=== PATIENT | female | born 1975 | race Caucasian/White ===

== ENCOUNTER 2016-12-12 07:30 | Inpatient (IN) | payer BC ==
--- NOTE | 2016-11-19 14:00 | NUR ---
JOINT REPLACEMENT PREOP CLASS PATIENT ATTENDED JOINT REPLACEMENT PREOP CLASS. CASE MANAGEMENT CONTACT INFORMATION PROVIDED. EDUCATION WAS PROVIDED REGARDING WHAT TO EXPECT BEFORE, DURING AND AFTER SURGERY. INCLUDING: OVERVIEW OF ANATOMY AND PHYSIOLOGY HOSPITAL TREATMENT SCHEDULE THERAPY DEMONSTRATION CASE MANAGEMENT RESPONSIBILITIES DISCHARGE PLANNING EQUIPMENT NEEDS JOINT REPLACEMENT WORKBOOK ANTI-COAGULATION SURGERY STRONG NUTRITIONAL PROTOCOL DISCHARGE INSTRUCTIONS [facility] PATIENT PORTAL, WITH INSTRUCTIONS CJR AND PREOP SURVERY PREOP BATHING- CHG GIVEN ALL PATIENT'S QUESTIONS ANSWERED TO THEIR SATISFACTION. PATIENTS AND COACHES ENCOURAGED TO CALL WITH ANY ADDITIONAL QUESTIONS OR CONCERNS. CM FOLLOWING FOR TRANSITIONAL CARE PLANNING NEEDS DURING HOSPITALIZATION.
--- NOTE | 2016-11-20 16:30 | NUR ---
PHONE INTERVIEW WITH PATIENT. PMH, MEDS, ALLERGIES REVIEWED DOCUMENTED. MY CONTACT INFORMATION INCLUDED IF PATIENT HAS QUESTIONS.CONTACTED PT VIA DR MAGANA REQUEST TO ASK HER IF SHE HAD STOPPED SMOKING. PT CONFIRMED SHE QUIT ON OCTOBER 16, STARTED CHANTIX ALSO
[~2016-12-12] VITALS: Ht 152.4 cm; Wt 60.4 kg
[2016-12-12] VITALS (19 sets, daily range): BP systolic 123–153; BP diastolic 61–92; PULSE 61–90; RESP 15–19; TEMP 96.1–98.5; O2SAT 94–100; Ht 152.4 cm; Wt 60.4 kg
[~2016-12-12 07:30] MED LIST: ACETAMINOPHEN 500 MG TABLET PO ONE; DEXAMETHASONE 4mg/ml - 1ml INJECTION IV ONE; FAMOTIDINE 20mg IVPB 50 ML IV ONE; HYDR-3989 PO; LIDOCAINE 1% (10mg/ml) 2ml SDV SQ ONE; LR 1,000 ML IV SCH; MELOXICAM 15 MG TABLET PO ONE; METOCLOPRAMIDE 10mg/2ml INJECTION IV ONE; NAPR220C11 PO; NOZIN NASAL SWAB NS ONE; ONDANSETRON 4mg/2ml INJECTION IV ONE; TRAM50TA4 PO; VARE1TAB22 PO
[2016-12-12] MEDS ORDERED: PROPOFOL 500mg 50 ML IV ONE ×3 (10:17→13:20)
--- NOTE | 2016-12-12 12:03 | ANESPREOP ---
Anesthesia Record Date and Time DATE: 12/12/16 TIME: 12:00 Pre-Op Diagnosis right knee osteoarthritis Proposed Surgical Procedure RT. TOTAL KNEE ARTHORPLASTY NPO since: 2199 Allergies: Coded Allergies: latex (Verified Allergy, Mild, RASH, 12/12/16) ciprofloxacin (Verified Adverse Reaction, Intermediate, CRAWLING OUT OF SKIN, 12/12/16) ciprofloxacin HCl (Verified Adverse Reaction, Intermediate, CRAWLING OUT OF SKIN, 12/12/16) promethazine HCl (Verified Adverse Reaction, Intermediate, AGITATION, 12/12) Ht/Wt/BMI Height: 5 ' 0.00 " Weight: 60.400 kg BMI: 26.0 kg/m2 Vital Signs Date Time Temp Pulse Resp B/P Pulse Ox O2 Delivery O2 Flow Rate FiO2 12/12/16 10:25 98.5 70 15 139/92 99 Room Air Medications Inpatient Medications Current Medications Medications (Trade) Dose Ordered Sig/Dirk Start Time Stop Time Status Last Admin Dose Admin Lactated Ringer's (Lactated Ringers) 1,000 ml @ 50 mls/hr Q20H 12/12/16 07:00 12/12/16 11:14 50 MLS/HR Hydrocodone/Apap ([place] 5-325 Tablet) 5-325 Tablet, 1 TAB PO PRN PRN for PAIN, ( Reported) Last Taken: on 12/08/16 Naproxen Sodium (Aleve) 220 Mg Capsule, 1 CAP PO PRN PRN for PAIN, (Reported) Last Taken: on 11/28/16 Tramadol HCl (Tramadol HCl) 50 Mg Tablet, 50 MG PO PRN, (Reported) Last Taken: on 11/21/16 Varenicline Tartrate (Chantix) Unknown Strength Tablet, 1 MG PO BID, (Reported) Last Taken: on 12/10/16 1700 Currently on Beta Butch: No Medical/Surgical History Anesthesia PMH: Reports: Anesthesia Reactions (NAUSEA; NO KNOWN AIRWAY ISSUES) , Arthritis (RT KNEE), Headaches (MIGRAINES-STRESS), Pneumonia (4 1/2 YEARS AGO) , Reflux (takes meds prn--not needed "in forever"), Denies: *Angina, *Diabetes, *Hypertension, *MA, CHF, CVA/Stroke/TIA, Cancer, Clotting Problems, Deep Vein Thrombosis, Glaucoma, Hepatitis, Hiatal Hernia, Malignant Hyperthermia, Renal Disease, Rheumatic Fever, Seizures, Sleep Apnea, Thyroid Disease Smoking Status: Former smoker Has pt. smoked today?: No # of Packs per Day: 1 # of Years: 20 Use Chewing Tobacco?: No Second Hand Exposure: No Substance Use Type: other (pt denies - has severe tooth decay throughout) Alcohol Intake: none HX of Last Menstrual Period: HYST Past Surgical History Orthopedic Surgeries: Yes - RT KNEE SCOPE X4; RT TIBIAL PLATEAU FX; hardware removal rt knee Abdominal Surgeries: Genitourinary Surgeries: Yes - CYSTO STENT INSERT Cardiac Surgeries: Endocrine Surgeries: Reproductive Surgeries: Yes - ABD HYST AND SALPINGECTOMY,ECTOPIC PREG,TUBAL Neurological Surgeries: Ear Surgeries: Nose Surgeries: Throat Surgeries: Other Surgeries: Anesthesia Adverse Reactions: FOUND none Pertinent Findings EKG Rhythm: Sinus Rhythm Physical Exam Respiratory: Lungs clear Cardiovascular: FOUND Regular rate, rhythm, FOUND No murmur Airway Assessment Mallampati Score: II TMD: 3 Fingerbreadths Neck Extension: Good Teeth: Chipped Teeth/Crowns (severe decay) Overall Assessment: No Airway Concerns ASA: 2 Plan Regional: Spinal Peripheral Nerve Block: Saphenous - RT Discussion Discussed risks/options/alternatives of anesthesia and questions answered. Patient consents. Nursing pain assessment noted. Present: Children, Spouse Attestation Statement Prior to the delivery of any anesthetic medication, I examined the patient, developed the plan, obtained the patient's consent and discussed the risk and benefits of the procedure with the patient/guardian. HORTENCIA CAT CRNA December 12, 2016 12:03
[2016-12-12] MEDS ORDERED: MIDAZOLAM 2mg/2ml INJECTION ONE ×2 (12:12→12:28)
--- NOTE | 2016-12-12 12:50 | PDHPBRIEF ---
History and Physical Update Date DATE: 12/12/16 TIME: 12:50 I evaluated this patient and found no changes in the history and clinical exam findings. The recommendations and treatment plan is also unchanged from the previous documentation. NOAH CHAN December 12, 2016 12:50
[2016-12-12] MEDS ORDERED: ROPIVACAINE 0.5% (5mg/ml) 30ml INJ ONE (13:07)
[2016-12-12] MEDS ORDERED: VANCOMYCIN 1 GRAM INJECTION ONE (13:07)
[2016-12-12] MEDS ORDERED: CEFAZOLIN 2 GM VIAL IV ONE (13:30)
[2016-12-12] MEDS ORDERED: TRANEXAMIC ACID 1,000 MG in NORMAL SALINE 100 ML IV ONE ×2 (13:30→14:30)
[2016-12-12] MEDS ORDERED: PROPOFOL IV ONE (13:45)
--- NOTE | 2016-12-12 14:18 | PDOPERATE ---
Operative Report Date of Operation 12/12/16 Side: Right Preoperative Diagnosis: knee primary DJD Postoperative Diagnosis Same as preoperative diagnosis. Operation/Procedure: total knee arthroplasty (right) Surgeon Onel Parada MD [employer] YANIR[place] Complications None. Regional Block: Spinal Estimated Blood Loss See Anesthesia Record. Fluids Please See Anesthesia Record. Description of Operation Ms. Stewart and her knee were identified and marked in the the preoperative holding area. She was then brought back to the operating suite and proper anesthesia was administered. She was then positioned supine on the operating table. The right lower extremity was then prepped and draped in my normal sterile fashion. Timeout was performed with all operating room personnel. Mrs. Stewart is status post open reduction internal fixation as well as hardware removal of her right lateral tibial plateau leaving her with severe posterior metatarsal arthritis in the lateral compartment. She has fixed valgus deformity. A standard anterior incision followed by a medial parapatellar approach was utilized. As expected she hasn't complete loss of cartilage both the lateral femoral condyle and the lateral tibial plateau. She also large osteophytes laterally. A distal femoral cut was made in 5 of valgus using intramedullary guide. The femur was sized at a 2 and rotation set using the epicondylar axis. Distal femoral cuts were performed. A proximal tibial cut was made using extramedullary guide. Remaining osteophytes and meniscus were removed. Gaps were checked and they were well balanced and rectangular after a lateral release including the popliteus. Trial components were placed with a 9 mm spacer. This allowed for full range of motion and the patella tracked well. The knee was stable throughout range of motion. The patella was resurfaced with the knee in extension to a size 29. The tibia rotation was then marked and the tibia stamped at the proper rotation at a size 3. The tourniquet was inflated. The bone was prepared for cementing and all components cemented into place and allowed to cure in extension. Betadine solution was used for 3 minutes during the curing period and then fully irrigated out with 1 L of normal saline. The tourniquet was deflated and hemostasis obtained with electrocautery. And extension her IT band was slightly light so partial release was performed at the joint line. After the cement had cured the knee was taken through range of motion check for balance and stability which were good. Vancomycin powder was placed into the wound. The arthrotomy was closed with #1 Vicryl. The remainder of the wound was then closed by my plumber's assistant utilizing 2-0 vycral in the subcutaneous tissue. 4-0 monocryl was used in the subcuticular layer followed by dermabond and a sterile dressing. After closure the patient will be transferred to the recovery room under the care of anesthesia. CLAUDINE PARADA MD December 12, 2016 14:18
[2016-12-12] MEDS ORDERED: PROPOFOL 200mg 20 ML IV ONE (14:26)
[2016-12-12] MEDS ORDERED: EPINEPHRINE 0.25 MG, BUPIVACAINE 0.25% 75 MG, MORPHINE SULFATE 15 MG, KETOROLAC 60 MG i... INJ ONE ×5 (14:30)
[2016-12-12] MEDS ORDERED: DiphenhydrAMINE 25 MG CAPSULE PO PRN (14:45)
[2016-12-12] MEDS ORDERED: DiphenhydrAMINE 50 MG/ML INJECTION IV PRN (14:45)
[2016-12-12] MEDS ORDERED: ONDANSETRON 4mg/2ml INJECTION IV PRN (14:45)
[2016-12-12] MEDS ORDERED: SENNOSIDES 8.6 MG TABLET PO PRN (14:45)
[2016-12-12] MEDS ORDERED: NOZIN NASAL SWAB NS ONE (14:45)
[2016-12-12] MEDS ORDERED: NAPROXEN 220 MG TABLET PO PRN (14:45)
[2016-12-12] MEDS ORDERED: PRN ORDERS MC (14:45)
[2016-12-12] MEDS ORDERED: LORAZEPAM 1 MG TABLET PO PRN (14:45)
--- NOTE | 2016-12-12 14:59 | ANESPD ---
Peripheral Nerve Blockade Physician: Richard Parada MD Date: 12/12/16 Surgical Procedure: right TKA Discussion Discussed risks/options/alternatives of anesthesia and questions answered. Patient consents. Nursing pain assessment noted. Block Start: 14:52 Block Stop: 14:54 Block Employed: Adductor Canal Indication: post-operative pain Approach: right side confirmed Position: supine Patient: Consent, risks/benefits discussed, Informed, post block act. discussed Monitors: EKG, SpO2, NIBP IV Sedation: No Initial Vital Signs First Documented Vital Signs Date Time Temp Pulse Resp B/P Pulse Ox O2 Delivery O2 Flow Rate FiO2 12/12/16 10:25 98.5 70 15 139/92 99 Room Air Post Vital Signs Vital Signs Date Time Temp Pulse Resp B/P Pulse Ox O2 Delivery O2 Flow Rate FiO2 12/12/16 10:25 98.5 70 15 139/92 99 Room Air Initial Pain Score: 0 Post Block Score: 0 Prep: chlorhexadine/ETOH Ultrasound Used?: Yes Injectate Ropivacaine (%): 0.5 Ropivacaine (mL): 15 Was Epi 1:200,000 Used?: No Injection Injection made incrementally with constant monitoring and aspiration every [5] ml. HORTENCIA CAT I MASTER CONTROL ENGINEER December 12, 2016 14:59
--- NOTE | 2016-12-12 15:00 | NUR ---
PRIYANKA MATHEW ATTEMPTED VISIT. PT IS AT PROCEDURE. HER SPOUSE IS IN ROOM. PRIYANKA INTRODUCES HERSELF AND EXPLAINS HER ROLE IN DC PLANNING. CM CONTACT INFORMATION IS LEFT AT THE BEDSIDE.
--- NOTE | 2016-12-12 15:28 | ANESPO ---
Post-Op Note Date 12/12/16 Time: 15:28 Status Pt Participated in Evaluation: Pt participated in person Vital Signs Date Time Temp Pulse Resp B/P Pulse Ox O2 Delivery O2 Flow Rate FiO2 12/12/16 15:20 66 17 135/61 98 Room Air 12/12/16 14:46 97.5 8.00 Respiratory Function: Airway patent, Regular respirations Cardiovascular Function: Regular pulse Mental Status: Alert/oriented Pain Level Intensity: 0 Unable to Assess Pain Due To: GIVEN INTRA OP Hydration: Taking po fluids Complications during Recovery None apparent Follow-Up Instructions Instructions Per Surgeon HORTENCIA CAT CRNA December 12, 2016 15:28
--- NOTE | 2016-12-12 15:30 | NUR ---
ADMIT \ PT TO ROOM 121 PER OR CART. TRANSFERRED TO S.U. BED WITH ASSIST OF 3 USING SLIDE BOARD R/T LEVEL OF SPINAL. PT DENIES DISCOMFORT. ANTOINETTE WRAP IN PLACE ON RT KNEE WITH NO S/SX OF DRAINAGE/BLEEDING. FAMILY AT BEDSIDE.
[2016-12-12] MEDS: NORMAL SALINE 1,000 ML IV SCH (15:33)
--- NOTE | 2016-12-12 15:47 | DI ---
Indication: ITS.REASON: POSTOP knee replacement PROCEDURE: KNEE RIGHT 2 VIEW: Encounter: Initial Comparison: None Findings: Postoperative changes of right total knee replacement are seen. There is expected postoperative subcutaneous gas. No evidence of hardware failure or acute fracture. No retained radiopaque surgical instruments or sponges. Overlying material causing artifact. Impression: New right total knee prosthesis without evidence of immediate complication. .
[2016-12-12] MEDS: OXYCODONE I.R. 5 MG TABLET PO PRN ×3 (16:38→23:54)
[2016-12-12] MEDS: ACETAMINOPHEN 325 MG TABLET PO SCH ×2 (16:39→20:44)
[2016-12-12] MEDS ORDERED: MORPHINE SULFATE 10 MG SYRINGE IV PRN (19:00)
--- NOTE | 2016-12-12 19:00 | NUR ---
STATUS PT C/O SEVERE PAIN. RATES 06/29. REC'D V.O. FOR PRN MORPHINE IV. PT VERBALIZED APPRECIATION.
--- NOTE | 2016-12-12 20:11 | NUR ---
SUMMARY PT HAS WALKED TWICE POST OP. UP IN CHAIR FOR EVENING MEAL. SOLID FOOD WITHOUT N/V. PT NOW STATES HER PAIN IS GETTING BETTER. ENCOURAGED HER TO LISTEN TO NOC RN REGARDING WHEN SHE WILL TAKE NEXT NARCOTIC. 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 ANTOINETTE WRAP REMAINS IN PLACE WITH NO S/SX OF BLEEDING OR DRAINAGE.
[2016-12-12] MEDS: CEFAZOLIN 2 G in NORMAL SALINE 100 ML IV SCH (20:43)
[2016-12-12] MEDS: ASPIRIN *EC* 325mg TABLET PO SCH (20:44)
[2016-12-12] MEDS: NOZIN NASAL SWAB NS SCH (20:44)
[2016-12-12] MEDS ORDERED: SENNOSIDES 8.6 MG TABLET PO SCH (22:00)
[2016-12-13 00:09] VITALS: BP 149/86; PULSE 78; RESP 16; TEMP 98.4; O2SAT 99
[2016-12-13] MEDS: OXYCODONE I.R. 5 MG TABLET PO PRN ×4 (03:23→12:42)
[2016-12-13] MEDS: CEFAZOLIN 2 G in NORMAL SALINE 100 ML IV SCH (04:09)
[2016-12-13] MEDS: NORMAL SALINE 1,000 ML IV SCH (04:12)
[2016-12-13 04:14] VITALS: BP 116/75; PULSE 72; RESP 12; TEMP 96.1; O2SAT 97
--- NOTE | 2016-12-13 05:41 | NUR ---
SHIFT SUMMARY PATIENT IS ALERT AND ORIENTED X3 THIS SHIFT. VITAL SIGNS ARE STABLE ON ROOM AIR. PATIENT AMBULATES WITH ASSIST X1, WALKER, AND GAIT BELT. PATIENT CONTINUES TO HAVE DIFFICULTY WITH PAIN CONTROL. 3 ROXICODONE HAVE BEEN ADMINISTERED EACH TIME AVAILABLE. PATIENT HAS REPORTED SOME NAUSEA WITH AMBULATION AND WITH INCREASING PAIN, BUT HAS REFUSED ANTINAUSEA MEDICATION. THE EPISODES SEEM TO PASS QUICKLY. PATIENT HAS DENIED ANY SHORTNESS OF AIR. I HAVE CONTINUED TO REMIND PATIENT THAT SHE CAN NOT HAVE PILLOWS UNDER THE OPERATIVE KNEE.
[2016-12-13 05:55] LABS: HCT - HEMATOCRIT 31.1 % (36-46); HGB - HEMOGLOBIN 10.5 GM/DL (12-16); MEAN CORPUSCULAR HGB 32.1 UUG (26-34); MEAN CORPUSCULAR HGB CONC(MCHC 33.8 GM/DL (31-37); MEAN CORPUSCULAR VOLUME 95.1 UM3 (80-100); MEAN PLATELET VOLUME 9.5 UM3 (9.4-12.4); RED BLOOD COUNT 3.27 M/MM3 (4.00-5.20); WBC - WHITE BLOOD COUNT 11.6 T/MM3 (4.5-11.0)
[2016-12-13 06:01] LABS: ANION GAP 8 MEQ/L (5-15); BUN/CREATININE RATIO 20 RATIO (6-26); CALCIUM 8.5 MG/DL (8.4-10.2); CHLORIDE 102 MEQ/L (98-107); CO2 - CARBON DIOXIDE 25 MEQ/L (22-30); CREATININE 0.6 MG/DL (0.7-1.2); GLOMERULAR FILTRATION RATE 110; GLUCOSE 114 MG/DL (65-110); POTASSIUM 3.9 MEQ/L (3.6-5); SODIUM 135 MEQ/L (134-144)
[2016-12-13] MEDS: NOZIN NASAL SWAB NS SCH (06:36)
[2016-12-13] MEDS: VARENICLINE 1 MG TABLET PO SCH ×2 (06:43→09:00)
[2016-12-13] MEDS: ASPIRIN *EC* 325mg TABLET PO SCH (08:12)
[2016-12-13] MEDS: ACETAMINOPHEN 325 MG TABLET PO SCH ×2 (08:12→12:43)
--- NOTE | 2016-12-13 08:53 | NUR ---
CM CM IN TO VISIT WITH PT. SHE IS ALERT AND ORIENTED. SHE HAS FWW. SHE PLANS TO DC HOME. SHE PLANS TO DO OUTPT PT AT [facility]. SHE IS GIVEN CM CONTACT INFORMATION. HERMAN IS 5. Addendum: 12/13/16 at 0854 by RAMANDEEP SIMON RN Amended: Links added.
[2016-12-13] MEDS ORDERED: DOCUSATE SODIUM 100 MG CAPSULE PO SCH (09:00)
[2016-12-13] MEDS ORDERED: POLYETHYL.GLYCOL 3350 PACKET 17gm PO SCH (09:00)
[2016-12-13 09:10] VITALS: BP 130/82; PULSE 68; RESP 18; TEMP 96.5; O2SAT 100
[2016-12-13 09:15] VITALS: PULSE 68; RESP 18
--- NOTE | 2016-12-13 11:52 | PDORTHOPN ---
Subjective Date DATE: 12/13/16 TIME: 11:50 Subjective Ewa is doing well. Pain got out of control last evening and she required IV Morphine. Her pain is better now and her main complaint is that she is tired. No other concerns. Objective Vital Signs Vital signs Vital Signs 12/13/16 12/13/16 12/13/16 12/13/16 00:09 04:14 09:10 09:15 Temp 98.4 96.1 96.5 Pulse 78 72 68 68 Resp 16 12 18 18 B/P 149/86 116/75 130/82 Pulse Ox 99 97 100 O2 Delivery Room Air Room Air Room Air 12/13/16 11:56 Temp 96.2 Pulse 60 Resp 16 B/P 133/77 Pulse Ox 100 O2 Delivery Room Air Height (Feet): 5 Height (Inches): 0.00 Weight (Kilograms): 60.400 General General Appearance: No Acute Distress Respiratory (Brief) Respiratory Brief: FOUND: non-labored Cardiovascular (Brief) Cardiac: FOUND: calf easily compressible, calf soft, nontender, pedal pulses intact Surgical Site Incision: FOUND: Mepilex dressing intact, no drainage Neurologic (Brief) Neurological Brief: FOUND: extremities w/o deficits, neuro intact Psychiatric (Brief) Psychiatric Brief: FOUND: alert, no acute distress Laboratory Laboratory Laboratory Tests 12/13/16 04:08 Laboratory Tests 12/13/16 04:08 Assessment & Plan Problems: (1) Degenerative arthritis of right knee Status: Chronic Qualifiers: Osteoarthritis type: primary Qualified Codes: M17.11 - Unilateral primary osteoarthritis, right knee Assessment & Plan: Current anti-coagulation protocol for VTE prophylaxis. SCD's. PT/OT services to improve independent function. Discharge Planning per Case Management. Mild elevation of WBC is thought to be a stress response to surgery. Pt is afebrile and has no clinical s/sx of infection. Hospital Course Summary Disclaimer The visit summary below is not to be considered part of the above Progress Note. NOAH CHAN December 13, 2016 11:52
[2016-12-13] MEDS ORDERED: ACET-2321 PO (11:55)
[2016-12-13] MEDS ORDERED: DOCU-168 PO (11:55)
[2016-12-13] MEDS ORDERED: MAGN400O4 PO (11:55)
[2016-12-13] MEDS ORDERED: ASPI-917 PO (11:55)
[2016-12-13] MEDS ORDERED: NAPR-1119 PO (11:55)
[2016-12-13] MEDS ORDERED: POLY17PO6 PO (11:55)
[2016-12-13] MEDS ORDERED: OXYC5TAB84 PO (11:55)
[2016-12-13 11:56] VITALS: BP 133/77; PULSE 60; RESP 16; TEMP 96.2; O2SAT 100
--- NOTE | 2016-12-13 11:58 | DSPDOC ---
General Date Date DATE: 12/13/16 TIME: 11:57 Attending Physician Richard Parada MD Admitting Physician Richard Parada MD Consulting Physician Admitting Diagnosis PRIMARY DEGENERATIVE JOINT DISEASE RIGHT KNEE Discharge Diagnosis Primary DJD right knee Procedures Rt total knee arthroplasty 12/12/16 History of Present Illness HPI Elements This patient was admitted for elective surgical tx of end stage degenerative joint disease that failed to respond to conservative treatment. Further details of this is found in the admission H&P. Hospital Course After appropriate preoperative clearance and signing of operative consent, the patient was given IV antibiotics, according to orthopedic protocol. The patient was taken to the operating room and underwent elective right total knee arthroplasty. Following surgery, antibiotics were discontinued less than 24 hours according to joint protocol. Appropriate anticoagulants were initiated and SCDs added for DVT prevention. The dressing was clean, dry, and intact. Pain control was obtained via multimodal approach. Bowel motivation addressed with scheduled and PRN medications. Early mobilization was initiated through PT services. Discharge arrangements made by a collaborative effort between the patient and Case Management. Follow-up is scheduled in 2-3 weeks. Discharge instructions given by orthopedic providers and nursing staff at discharge. Discharge condition was good. Problems: (1) Degenerative arthritis of right knee Status: Chronic Assessment & Plan: Current anti-coagulation protocol for VTE prophylaxis. SCD's. PT/OT services to improve independent function. Discharge Planning per Case Management. Mild elevation of WBC is thought to be a stress response to surgery. Pt is afebrile and has no clinical s/sx of infection. Ongoing Care Required?: No Laboratory Laboratory Tests Test 12/13/16 04:08 White Blood Count 11.6T/MM3 Red Blood Count 3.27M/MM3 Hemoglobin 10.5GM/DL Hematocrit 31.1% Mean Corpuscular Volume 95.1UM3 Mean Corpuscular Hemoglobin 32.1UUG Mean Corpuscular Hemoglobin Concent 33.8GM/DL RDW Standard Deviation 38.9FL Platelet Count 245T/MM3 Mean Platelet Volume 9.5UM3 Turbidity < 20 Sodium Level 135MEQ/L Potassium Level 3.9MEQ/L Chloride Level 102MEQ/L Carbon Dioxide Level 25MEQ/L Anion Gap 8MEQ/L Blood Urea Nitrogen 12.0MG/DL Creatinine 0.6MG/DL Glomerular Filtration Rate Calc 110 BUN/Creatinine Ratio 20RATIO Glucose Level 114MG/DL Calculated Osmolality 261MOSM/KG Calcium Level 8.5MG/DL Icterus Index < 2 Chemistry Specimen Hemolysis < 15 Home Meds Active Scripts Polyethylene Glycol 3350 (Miralax) 17 Gm Powd.pack, 17 G PO DAILY Y for CONSTIPATION, #1 BOTTLE Take 17 Grams (1 capful), by mouth, once a day. Prov:NOAH CHAN 12/13/16 Magnesium Hydroxide (Milk of Magnesia) 400 Mg/5 Ml Oral.susp, 30 ML PO 0800 for 30 Days Prov:NOAH CHAN 12/13/16 Docusate Sodium (Colace) 100 Mg Capsule, 100 MG PO BID, #60 CAP Prov:NOAH CHAN 12/13/16 Oxycodone HCl (Oxycodone HCl) 5 Mg Tablet, 5-15 MG PO Q3H Y for BREAKTHROUGH PAIN, #60 TAB Prov:NOAH CHAN 12/13/16 Naproxen Sodium (Naproxen 220mg) 220 Mg Tablet, 440 MG PO BID Y for PAIN, #60 TAB Prov:NOAH CHAN 12/13/16 Aspirin *EC* (Aspirin EC) 325 Mg Tablet.dr, 325 MG PO BID, #84 TAB This medication is for blood clot prevention. Take one tablet twice a day for 6 weeks. Prov:NOAH CHAN 12/13/16 Acetaminophen (Tylenol) 325 Mg Tablet, 650 MG PO QID, #100 TAB Prov:NOAH CHAN 12/13/16 Reported Medications Varenicline Tartrate (Chantix) Unknown Strength Tablet, 1 MG PO BID 11/20/16 Discontinued Reported Medications Hydrocodone/Apap ([place] 5-325 Tablet) 5-325 Tablet, 1 TAB PO PRN Y for PAIN, TAB 11/25/16 Naproxen Sodium (Aleve) 220 Mg Capsule, 1 CAP PO PRN Y for PAIN, CAP 11/20/16 Tramadol HCl (Tramadol HCl) 50 Mg Tablet, 50 MG PO PRN, TAB 11/20/16 Discharge Disposition Please refer to Case Management Notes for patient's disposition. Estimated Blood Loss 150.0 NOAH CHAN December 13, 2016 11:58
--- NOTE | 2016-12-13 12:07 | NUR ---
PT REFUSAL PT REFUSED TO GET UP TO THE RECLINER AT THIS TIME FOR LUNCH. PT REPORTS ALL SHE NEEDS TO DO IS SLEEP.
--- NOTE | 2016-12-13 14:09 | NUR ---
DISCHARGE NURSING NOTE THE PT IS ALERT AND ORIENTED X3. VITAL SIGNS STABLE, ON RA. THIS RN WENT OVER DISCHARGE INSTRUCTIONS WITH THE PT AND THE PT'S FAMILY, INCLUDING DISCHARGE DIET, ACTIVITY, MEDICATIONS, INCISION CARE AND FOLLOW-UP APPOINTMENTS. THE PT ITEMS WERE PACKED UP. PT GIVEN ORIGINALS OF PRESCRIPTIONS. PT IV SITE AND ID BAND REMOVED. PT WHEELED OUT THROUGH THE EMERGENCY ROOM EXIT TO BE DISCHARGED HOME WITH FAMILY. NO CONCERNS NOTED.
[2016-12-14] MEDS ORDERED: MILK OF MAGNESIA 30 ML SUSP PO SCH (08:00)
[2016-12-14] MEDS ORDERED: BISACODYL 10 MG SUPPOSITORY RECTALLY SCH (20:00)
--- NOTE | 2016-12-17 13:20 | NUR ---
I CALLED PATIENT FOR POST HOSPITAL FOLLOW UP AND ASKED THE FOLLOWING QUESTIONS FOR DR FOSS, PATIENT IS POST R TKA FROM 5-25. 1. PAIN AT REST: 6 2. PAIN WITH EXERTION: 10 3. ANTICOAGULATION: ASA 325MG BID 4. PAIN MED: TYLENOL 650MG QID AND OXY 5-15MG Q3 HOURS. PATIENT IS IN ALOT OF PAIN, HAS ALOT OF BRUISING AND SWELLING. STATES THAT SHE WILL RUN OUT OF OXY IF TAKES 3 TABS EVERY 3 HOURS. I TOLD HER TO CONTACT DR FOSS'S OFFICE TO REPORT PAIN AND SWELLING, SHE VERBALIZED THAT SHE WILL CALL. 5. BM: YES
== END 2016-12-13 14:09 | disposition home or self-care (01) | DRG 470 ==
LOC: SRG 09:47
PROVIDERS: ADMIT Orthopaedic Surgery; ATTEND Orthopaedic Surgery
PROC: 0SRC0J9 Replacement of Right Knee Joint with Synthetic Substitute, Cemented, Open Approach (ICD-10-PCS; principal; 2016-12-12 13:30)
DX: M17.11 Unilateral primary osteoarthritis, right knee (principal); M21.061 Valgus deformity, not elsewhere classified, right knee; Z87.828 Personal history of other (healed) physical injury and trauma; D72.829 Elevated white blood cell count, unspecified; D64.9 Anemia, unspecified; F32.9 Major depressive disorder, single episode, unspecified; K21.9 Gastro-esophageal reflux disease without esophagitis; Z87.891 Personal history of nicotine dependence
CPT/HCPCS: 36415; 80048; 85027